=== PATIENT | male | born 1980 | race Hispanic/Latino ===

== ENCOUNTER 2021-09-07 12:07 | Emergency (ER) | payer OTHER ==
[2021-09-07] MEDS ORDERED: Lidocaine 2% 20 ml MDV ONE (12:55)
[2021-09-07] MEDS ORDERED: Bacitracin 1 PK ONE (12:55)
== END 2021-09-07 13:43 | disposition home or self-care (01) ==
LOC: MADERS 12:07
DX: S61.411A Laceration without foreign body of right hand, initial encounter (principal); W26.8XXA Contact with other sharp object(s), not elsewhere classified, initial encounter; Y92.69 Other specified industrial and construction area as the place of occurrence of the external cause
CPT/HCPCS: 12001